=== PATIENT | female | born 1940 | race Native Hawaiian/Other Pacific Islander ===

== ENCOUNTER 2017-02-15 17:15 | Outpatient (CLI) | payer OTHER, MEDICARE ==
[~2017-02-15 17:15] MED LIST: AMIO200T14 PO; AMIODARONE200 MG PO; AMLODIPINE5 MG PO; ASA LO-DOSE81 MG PO; CLOPIDOGREL75 MG PO; DIOVAN HCT320 MG/25 PO; GLIM4TAB PO; LEVOTHYROXIN75 MCG PO; LIPITOR40 MG PO; MELOXICAM15 MG PO; METFTAB PO; METO25TA4 PO; METOPROLOL25 MG PO; PANT40TA PO; RANITIDINE 150150 MG PO
[2017-02-15 17:42] LABS: PLATELET COUNT 329 K/uL (152-353)
[2017-02-15 18:41] LABS: POTASSIUM 3.8 mmol/L (3.6-5.2); SODIUM 134 mmol/L (136-145)
== END 2017-02-15 19:21 | disposition home or self-care (01) ==
LOC: LABW 17:15
PROVIDERS: Nurse Practitioner
DX: D64.89 Other specified anemias (principal); I48.91 Unspecified atrial fibrillation; E11.9 Type 2 diabetes mellitus without complications; E78.4 Other hyperlipidemia; E03.8 Other specified hypothyroidism; R42 Dizziness and giddiness; R53.1 Weakness; Z79.01 Long term (current) use of anticoagulants; Z51.81 Encounter for therapeutic drug level monitoring
CPT/HCPCS: 36415; 80053; 80061; 82607; 82728; 83036; 83540; 84443; 85027; 85610

== ENCOUNTER 2017-04-05 12:40 | Outpatient (CLI) | payer OTHER, MEDICARE ==
[2017-04-05 13:09] LABS: PLATELET COUNT 187 K/uL (152-353)
== END 2017-04-05 19:32 | disposition home or self-care (01) ==
LOC: LABW 12:40
PROVIDERS: Nurse Practitioner
DX: D64.9 Anemia, unspecified (principal)
CPT/HCPCS: 36415; 82607; 82728; 83540; 83550; 85027

== ENCOUNTER 2018-10-30 09:54 | Outpatient (CLI) | payer OTHER, MEDICARE ==
[2018-10-30 10:33] LABS: PLATELET COUNT 217 K/uL (152-353)
[2018-10-30 10:49] LABS: POTASSIUM 3.8 mmol/L (3.6-5.2)
== END 2018-10-30 22:10 | disposition home or self-care (01) ==
LOC: LABW 09:54
PROVIDERS: Nurse Practitioner
DX: I10 Essential (primary) hypertension (principal); E11.21 Type 2 diabetes mellitus with diabetic nephropathy; E78.00 Pure hypercholesterolemia, unspecified; E03.9 Hypothyroidism, unspecified
CPT/HCPCS: 36415; 80053; 80061; 82043; 82570; 83036; 84443; 85027

== ENCOUNTER 2018-11-16 09:43 | Outpatient (CLI) | payer OTHER, MEDICARE | END 2018-11-16 20:49 | disposition home or self-care (01) | LOC: MAMMO 09:43 | DX: Z12.31 Encounter for screening mammogram for malignant neoplasm of breast (principal) ==

== ENCOUNTER 2019-04-18 12:59 | Outpatient (CLI) | payer OTHER, MEDICARE | END 2019-04-18 19:21 | disposition home or self-care (01) | LOC: RAD 12:59 | DX: M79.604 Pain in right leg (principal) ==

== ENCOUNTER 2019-05-22 11:39 | Outpatient (CLI) | payer OTHER, MEDICARE | END 2019-05-22 19:23 | disposition home or self-care (01) | LOC: LAB 11:39 | DX: R10.31 Right lower quadrant pain (principal) | CPT/HCPCS: 81000; 87086; 87088 ==

== ENCOUNTER 2019-05-29 09:09 | Outpatient (CLI) | payer OTHER, MEDICARE | END 2019-05-29 22:33 | disposition home or self-care (01) | LOC: CT 09:09 | DX: R10.31 Right lower quadrant pain (principal) ==

== ENCOUNTER 2019-12-11 12:35 | Outpatient (CLI) | payer OTHER ==
[2019-12-11 13:23] LABS: PLATELET COUNT 210 K/uL (152-353)
[2019-12-11 15:51] LABS: POTASSIUM 3.9 mmol/L (3.6-5.2)
== END 2019-12-11 21:13 | disposition home or self-care (01) ==
LOC: LAB 12:35
PROVIDERS: Nurse Practitioner Family
DX: Z00.00 Encounter for general adult medical examination without abnormal findings (principal); E03.8 Other specified hypothyroidism; I48.91 Unspecified atrial fibrillation; I10 Essential (primary) hypertension; K21.9 Gastro-esophageal reflux disease without esophagitis; F41.9 Anxiety disorder, unspecified; I25.10 Atherosclerotic heart disease of native coronary artery without angina pectoris; E11.41 Type 2 diabetes mellitus with diabetic mononeuropathy; Z79.899 Other long term (current) drug therapy
CPT/HCPCS: 80053; 80061; 83036; 84439; 84443; 85027

== ENCOUNTER 2020-04-21 13:57 | Outpatient (CLI) | payer OTHER ==
[2020-04-21 15:04] LABS: POTASSIUM 4.2 mmol/L (3.6-5.2)
== END 2020-04-21 19:13 | disposition home or self-care (01) ==
LOC: LAB 13:57
PROVIDERS: Nurse Practitioner Family
DX: M25.50 Pain in unspecified joint (principal); F41.8 Other specified anxiety disorders; I10 Essential (primary) hypertension; E03.8 Other specified hypothyroidism; K21.9 Gastro-esophageal reflux disease without esophagitis; E11.41 Type 2 diabetes mellitus with diabetic mononeuropathy; I48.91 Unspecified atrial fibrillation; Z79.899 Other long term (current) drug therapy
CPT/HCPCS: 80053; 80061; 82306; 82607; 84439; 84443

== ENCOUNTER 2020-06-17 09:48 | Outpatient (CLI) | payer OTHER | END 2020-06-17 19:49 | disposition home or self-care (01) | LOC: US 09:48 | DX: M79.606 Pain in leg, unspecified (principal); R60.0 Localized edema ==

== ENCOUNTER 2020-08-24 13:02 | Outpatient (CLI) | payer OTHER | END 2020-08-24 23:46 | disposition home or self-care (01) | LOC: LAB 13:02 | DX: R50.9 Fever, unspecified (principal); J02.9 Acute pharyngitis, unspecified; Z11.59 Encounter for screening for other viral diseases | CPT/HCPCS: 87635; G2023; U0003 ==

== ENCOUNTER 2020-11-03 13:15 | Outpatient (CLI) | payer OTHER ==
[2020-11-03 13:53] LABS: PLATELET COUNT 157 K/uL (152-353)
[2020-11-03 14:06] LABS: POTASSIUM 4.6 mmol/L (3.6-5.2)
== END 2020-11-03 22:01 | disposition home or self-care (01) ==
LOC: LAB 13:15
PROVIDERS: ATTEND Nurse Practitioner Family
DX: I10 Essential (primary) hypertension (principal); F41.8 Other specified anxiety disorders; E03.8 Other specified hypothyroidism; I48.91 Unspecified atrial fibrillation; E11.41 Type 2 diabetes mellitus with diabetic mononeuropathy; K21.9 Gastro-esophageal reflux disease without esophagitis; R13.10 Dysphagia, unspecified; E55.9 Vitamin D deficiency, unspecified
CPT/HCPCS: 80053; 80061; 82306; 83036; 84439; 84443; 84481; 85027

== ENCOUNTER 2021-03-25 20:49 | Observation (INO) | payer OTHER ==
[2021-03-25] VITALS (7 sets, daily range): BP systolic 136–195; BP diastolic 52–67; TEMP 98.1
[~2021-03-25] VITALS: Ht 172.7 cm; Wt 74.2 kg
[2021-03-25 21:32] LABS: PLATELET COUNT 185 K/uL (152-353)
[2021-03-25 21:42] LABS: POTASSIUM 4.4 mmol/L (3.6-5.2); SODIUM 139 mmol/L (136-145)
[2021-03-25 21:59] LABS: PARTIAL THROMBOPLASTIN TIME 24.1 SECONDS (24.5-33.6)
[2021-03-26 04:00] VITALS: BP 145/56; TEMP 98.5
[2021-03-26 06:52] VITALS: BP 158/57; TEMP 97.6; Ht 172.7 cm; Wt 74.2 kg
[2021-03-26 08:00] VITALS: BP 150/60; TEMP 97.6
[2021-03-26 08:57] LABS: POTASSIUM 4.3 mmol/L (3.6-5.2)
[2021-03-26 08:59] LABS: PLATELET COUNT 160 K/uL (152-353)
[2021-03-26 12:00] VITALS: BP 166/59; TEMP 98
--- NOTE | 2021-03-26 13:28 | NUR ---
EKG COMPLETED AND PLACED ON PT CHART.
[2021-03-26 16:00] VITALS: BP 178/63; TEMP 98.3
--- NOTE | 2021-03-26 18:00 | NUR ---
20G TO LAC D/C WITH TIP INTACT. PT TOLERATED WELL. DISCHARGE INSTRUCTIONS PROVIDED TO PATIENT. PATIENT VERBALIZED UNDERSTANDING. [facility] CALLED TO [place] [facility] PATIENT. PATIENT WAITING ON TRANSPORTATION HOME.
--- NOTE | 2021-03-26 18:28 | NUR ---
[facility] HERE. PATIENT DISCHARGED HOME VIA WHEELCHAIR TO PERSONAL VEHICLE WITH [facility]ING.
== END 2021-03-26 18:30 | disposition home or self-care (01) ==
LOC: ED 20:49 → MED/SURG 22:46
PROVIDERS: Hospitalist; ADMIT Internal Medicine Endocrinology, Diabetes & Metabolism; ATTEND Internal Medicine Endocrinology, Diabetes & Metabolism
DX: R07.89 Other chest pain (principal); E78.49 Other hyperlipidemia; E11.9 Type 2 diabetes mellitus without complications; I25.10 Atherosclerotic heart disease of native coronary artery without angina pectoris; I10 Essential (primary) hypertension; I73.89 Other specified peripheral vascular diseases; R06.02 Shortness of breath; M15.8 Other polyosteoarthritis
CPT/HCPCS: 36415; 80048; 80053; 82550; 83880; 84484; 85027; 85610; 85730; 87635; 93005; 94760; 99220; 99283; G0378; J1650; U0003

== ENCOUNTER 2022-01-20 09:23 | Outpatient (CLI) | payer OTHER | END 2022-01-20 19:09 | disposition home or self-care (01) | LOC: CT 09:23 | PROVIDERS: ATTEND Nurse Practitioner Family | DX: R93.89 Abnormal findings on diagnostic imaging of other specified body structures (principal); R91.1 Solitary pulmonary nodule | CPT/HCPCS: Q9963 ==

== ENCOUNTER 2022-01-20 16:22 | Emergency (ER) | payer OTHER | END 2022-01-20 16:40 | disposition home or self-care (01) | LOC: ED 16:22 | DX: Z53.21 Procedure and treatment not carried out due to patient leaving prior to being seen by health care provider (principal) | CPT/HCPCS: 99281 ==

== ENCOUNTER 2022-01-29 05:28 | Emergency (ER) | payer OTHER ==
[~2022-01-29] VITALS: Ht 172.7 cm; Wt 63.0 kg
[2022-01-29 05:28] VITALS: TEMP 97.6
[2022-01-29 05:49] LABS: PLATELET COUNT 384 K/uL (152-353)
[2022-01-29 05:58] LABS: POTASSIUM 3.6 mmol/L (3.6-5.2)
[2022-01-29 06:12] LABS: PARTIAL THROMBOPLASTIN TIME 28.3 SECONDS (24.5-33.6)
[2022-01-29 09:05] VITALS: BP 119/77
== END 2022-01-29 09:06 | disposition short-term general hospital (02) ==
LOC: ED 05:28
PROVIDERS: Emergency Medicine
DX: I24.9 Acute ischemic heart disease, unspecified (principal); I48.20 Chronic atrial fibrillation, unspecified; Z11.52 Encounter for screening for COVID-19; I10 Essential (primary) hypertension
CPT/HCPCS: 36415; 80053; 82550; 84484; 85027; 85610; 85730; 87635; 93005; 96365; 96375; 99284; J2270; J2405; J3490; U0003

== ENCOUNTER 2022-02-20 11:43 | Inpatient (IN) | payer OTHER ==
[2022-02-20] VITALS (20 sets, daily range): BP systolic 120–174; BP diastolic 52–83; TEMP 97.6–98.2; Ht 172.7 cm; Wt 59.7 kg
[~2022-02-20] VITALS: Ht 172.7 cm; Wt 59.7 kg
[2022-02-20 12:17] LABS: PLATELET COUNT 299 K/uL (152-353)
[2022-02-20 12:20] LABS: POTASSIUM 3.6 mmol/L (3.6-5.2)
[2022-02-20 12:30] LABS: PARTIAL THROMBOPLASTIN TIME 32.3 SECONDS (24.5-33.6)
[2022-02-20] MEDS ORDERED: HYDR25TA57 PO (16:16)
[2022-02-20] MEDS ORDERED: CHLORTHALID25 MG PO (16:18)
[2022-02-20] MEDS ORDERED: LIPITOR40 MG PO (16:20)
[2022-02-20] MEDS ORDERED: LISI10TA11 PO (16:23)
[2022-02-20] MEDS ORDERED: SUCRALFATE1 GM PO (16:25)
[2022-02-20] MEDS ORDERED: GLIM4TAB PO (16:26)
[2022-02-20] MEDS ORDERED: AMIODARONE HYD200 MG PO (16:31)
[2022-02-20] MEDS ORDERED: APIX1TAB PO (16:32)
[2022-02-20] MEDS ORDERED: EUTHYROX125 MCG PO (16:35)
[2022-02-20] MEDS ORDERED: FAMOTIDINE20 MG PO (16:39)
[2022-02-20] MEDS ORDERED: MEGESTROL400 MG/10 PO (16:40)
[2022-02-20] MEDS ORDERED: VITAMIN D32000 UNI1 PO (16:42)
[2022-02-20] MEDS ORDERED: [UNRECOGNIZED DRUG - CODE] PO (16:43)
[2022-02-20] MEDS ORDERED: FURO20TA67 PO (16:44)
[2022-02-20 19:59] LABS: PLATELET COUNT 255 K/uL (152-353)
[2022-02-20 20:13] LABS: POTASSIUM 3.2 mmol/L (3.6-5.2)
== END 2022-02-20 21:54 | disposition short-term general hospital (02) | DRG 689 ==
LOC: ED 11:43 → MED/SURG 13:45
PROVIDERS: Hospitalist; ADMIT Internal Medicine; ATTEND Internal Medicine
DX: N39.0 Urinary tract infection, site not specified (principal); I46.9 Cardiac arrest, cause unspecified; E86.0 Dehydration; I25.10 Atherosclerotic heart disease of native coronary artery without angina pectoris; E03.8 Other specified hypothyroidism; E11.9 Type 2 diabetes mellitus without complications; I11.0 Hypertensive heart disease with heart failure; I50.9 Heart failure, unspecified; I48.0 Paroxysmal atrial fibrillation
CPT/HCPCS: 36415; 51702; 80053; 80320; 81000; 82550; 82948; 83880; 84484; 85027; 85610; 85730; 87077; 87086; 87088; 87186; 87635; 92950; 93005; 94760; 96360; 96365; 99284; J0171; J0282; J0696; J1650; J1815; J2405; U0003

== ENCOUNTER 2022-03-03 10:29 | Inpatient (IN) | payer OTHER ==
[~2022-03-03] VITALS: Ht 172.7 cm; Wt 61.9 kg
[~2022-03-03 10:29] MED LIST changes: +ALLERCLEAR10 MG PO; +AMIODARONE HYD200 MG PO; +APIX1TAB PO; +CHLORTHALID25 MG PO; +EUTHYROX125 MCG PO; +FAMOTIDINE20 MG PO; +FURO20TA67 PO; +HYDR25TA57 PO; +LISI10TA11 PO; +MEGE40TA32 PO; +SUCRALFATE1 GM PO; +VITAMIN D32000 UNI1 PO
[2022-03-03 13:28] VITALS: BP 151/62; TEMP 97.6; Ht 172.7 cm; Wt 61.9 kg
[2022-03-03] MEDS ORDERED: CARAFATE1 GM PO (14:25)
[2022-03-03] MEDS ORDERED: METF500T PO (14:25)
[2022-03-03] MEDS ORDERED: ASPIRIN/ENTERIC81 MG PO (14:27)
[2022-03-03] MEDS ORDERED: METO50TA63 PO (14:27)
[2022-03-03] MEDS ORDERED: GLIM4TAB PO (14:31)
[2022-03-03 20:00] VITALS: BP 144/55; TEMP 98.04
[2022-03-04 08:00] VITALS: BP 177/109; TEMP 98.4
[2022-03-04 20:00] VITALS: BP 143/55; TEMP 98.9
[2022-03-05 08:00] VITALS: BP 120/99; TEMP 98.8
[2022-03-05 20:00] VITALS: BP 164/61; TEMP 98.5
[2022-03-06 08:00] VITALS: BP 167/66; TEMP 98.6
[2022-03-06 20:00] VITALS: BP 154/60; TEMP 98.8
[2022-03-07 08:00] VITALS: BP 156/61; TEMP 98.1
[2022-03-07 17:15] VITALS: BP 158/59
[2022-03-07 20:00] VITALS: BP 141/57; TEMP 98.2
[2022-03-07 21:15] VITALS: BP 141/57; TEMP 98.2
[2022-03-08 08:00] VITALS: BP 169/63; TEMP 98.1
[2022-03-08 10:45] VITALS: BP 151/97; TEMP 98.1
[2022-03-08 13:15] VITALS: BP 132/59; TEMP 98.1
[2022-03-08 20:11] VITALS: BP 129/53; TEMP 98.8
[2022-03-08 21:15] VITALS: BP 129/53; TEMP 98.8
[2022-03-09 08:00] VITALS: BP 149/56; TEMP 98.8
[2022-03-09 09:00] VITALS: BP 149/56; TEMP 98.8
[2022-03-09 20:00] VITALS: BP 141/53; TEMP 98.9
[2022-03-10 08:00] VITALS: BP 148/72; TEMP 98.2
[2022-03-10 20:00] VITALS: BP 140/55; TEMP 98
[2022-03-11 08:00] VITALS: BP 171/70; TEMP 98.2
== END 2022-03-11 10:32 | disposition home health service (06) | DRG 298 ==
LOC: MED/SURG 10:29
PROVIDERS: ADMIT Internal Medicine Endocrinology, Diabetes & Metabolism; ATTEND Internal Medicine Endocrinology, Diabetes & Metabolism
DX: I46.9 Cardiac arrest, cause unspecified (principal); I48.20 Chronic atrial fibrillation, unspecified; E11.9 Type 2 diabetes mellitus without complications; E16.2 Hypoglycemia, unspecified; I25.10 Atherosclerotic heart disease of native coronary artery without angina pectoris; Z95.1 Presence of aortocoronary bypass graft; M62.81 Muscle weakness (generalized); R26.81 Unsteadiness on feet; Z74.1 Need for assistance with personal care; R13.12 Dysphagia, oropharyngeal phase; E78.5 Hyperlipidemia, unspecified; I10 Essential (primary) hypertension
CPT/HCPCS: 87081; J1815; J7060

== ENCOUNTER → 2022-05-03 | Emergency (ER) | payer OTHER ==
[~2022-05-03] VITALS: Ht 172.7 cm; Wt 61.7 kg
[~2022-05-03] MED LIST changes: +ASPIRIN/ENTERIC81 MG PO; +CARAFATE1 GM PO; +CEPH500C20 PO; +METF500T PO; +METO50TA63 PO
[2022-05-03 19:05] LABS: PLATELET COUNT 265 K/uL (152-353)
[2022-05-03 19:19] LABS: POTASSIUM 3.7 mmol/L (3.6-5.2)
[2022-05-03 21:55] VITALS: BP 155/72; TEMP 98.4
== END ==
LOC: ED 18:21
PROVIDERS: Emergency Medicine
PROC: 0HQ1XZZ Repair Face Skin, External Approach (ICD-10-PCS; principal; 2022-05-03)
DX: S01.81XA Laceration without foreign body of other part of head, initial encounter (principal); W18.12XA Fall from or off toilet with subsequent striking against object, initial encounter; Y92.89 Other specified places as the place of occurrence of the external cause
CPT/HCPCS: 36415; 80053; 84484; 85027; 93005; 96360; 99284

== ENCOUNTER 2022-06-06 08:20 | Emergency (ER) | payer OTHER ==
[~2022-06-06] VITALS: Ht 172.7 cm; Wt 64.0 kg
[2022-06-06 08:28] VITALS: TEMP 98
[2022-06-06 09:13] LABS: PLATELET COUNT 238 K/uL (152-353)
[2022-06-06 09:23] LABS: POTASSIUM 3.6 mmol/L (3.6-5.2)
[2022-06-06 14:43] VITALS: BP 164/74
== END 2022-06-06 14:44 | disposition short-term general hospital (02) ==
LOC: ED 08:20
PROVIDERS: Emergency Medicine Emergency Medical Services
DX: I50.9 Heart failure, unspecified (principal); Z95.0 Presence of cardiac pacemaker
CPT/HCPCS: 80053; 81002; 83735; 83880; 84484; 85027; 85610; 93005; 96374; 99284; J1940

== ENCOUNTER 2022-07-15 11:51 | Emergency (ER) | payer OTHER ==
[~2022-07-15] VITALS: Ht 172.7 cm; Wt 64.0 kg
[2022-07-15 12:06] VITALS: TEMP 97.4
[2022-07-15 12:54] LABS: PLATELET COUNT 350 K/uL (152-353)
[2022-07-15 12:59] LABS: POTASSIUM 3.5 mmol/L (3.6-5.2)
[2022-07-15 17:15] VITALS: BP 131/71
[2022-07-15] MEDS ORDERED: POTA20TA4 PO ×2 (17:24)
[2022-07-16] MEDS ORDERED: METF500T PO ×4 (12:27→12:28)
[2022-07-16] MEDS ORDERED: GLIM2TAB PO ×4 (12:30→12:31)
[2022-07-16] MEDS ORDERED: FERROUS SULF325 MG PO ×4 (12:33→13:28)
[2022-07-16] MEDS ORDERED: CLOPIDOGREL75 MG PO ×2 (12:35)
[2022-07-16] MEDS ORDERED: POTASSIUM CHLO20 ME1 PO ×2 (12:39)
== END 2022-07-15 18:27 | disposition home or self-care (01) ==
LOC: ED 11:51
PROVIDERS: Emergency Medicine
DX: I50.9 Heart failure, unspecified (principal); D64.89 Other specified anemias; E87.6 Hypokalemia; Z79.899 Other long term (current) drug therapy
CPT/HCPCS: 36415; 80053; 80307; 81002; 82140; 82550; 83880; 84443; 84484; 85027; 93005; 96374; 99284; J1940

== ENCOUNTER 2022-07-16 05:10 | Observation (INO) | payer OTHER ==
[~2022-07-16] VITALS: Ht 172.7 cm; Wt 60.8 kg
[2022-07-16] VITALS (10 sets, daily range): BP systolic 115–146; BP diastolic 57–102; TEMP 96.1–98.5; Ht 172.7 cm; Wt 60.8 kg
[~2022-07-16 05:10] MED LIST changes: +POTA20TA4 PO
[2022-07-16 05:55] LABS: PLATELET COUNT 317 K/uL (152-353)
[2022-07-16 06:08] LABS: POTASSIUM 3.4 mmol/L (3.6-5.2)
[2022-07-16] MEDS ORDERED: METF500T PO ×4 (12:27→12:28)
[2022-07-16] MEDS ORDERED: GLIM2TAB PO ×4 (12:30→12:31)
[2022-07-16] MEDS ORDERED: FERROUS SULF325 MG PO ×4 (12:33→13:28)
[2022-07-16] MEDS ORDERED: CLOPIDOGREL75 MG PO ×2 (12:35)
[2022-07-16] MEDS ORDERED: POTASSIUM CHLO20 ME1 PO ×2 (12:39)
== END 2022-07-16 16:29 | disposition home or self-care (01) ==
LOC: ED 05:10 → MED/SURG 06:30
PROVIDERS: Emergency Medicine; ADMIT Internal Medicine; ATTEND Internal Medicine
DX: E11.649 Type 2 diabetes mellitus with hypoglycemia without coma (principal); D50.8 Other iron deficiency anemias; Z86.73 Personal history of transient ischemic attack (TIA), and cerebral infarction without residual deficits; I11.0 Hypertensive heart disease with heart failure; I50.9 Heart failure, unspecified; I48.91 Unspecified atrial fibrillation; E78.49 Other hyperlipidemia; E03.8 Other specified hypothyroidism
CPT/HCPCS: 36415; 36430; 80053; 82607; 82728; 82746; 82948; 83540; 83550; 84466; 84484; 85027; 86850; 86900; 86901; 86922; 93005; 96374; 99220; 99284; G0378; J7060; P9016

== ENCOUNTER 2022-07-21 08:15 | Outpatient (CLI) | payer OTHER ==
[~2022-07-21] VITALS: Ht 172.7 cm; Wt 60.8 kg
[~2022-07-21 08:15] MED LIST changes: +FERROUS SULF325 MG PO; +GLIM2TAB PO; +POTASSIUM CHLO20 ME1 PO
[2022-07-21 08:19] VITALS: BP 138/54; TEMP 98.3
[2022-07-21 10:25] VITALS: BP 126/48; TEMP 98.4
== END 2022-07-21 23:00 | disposition home or self-care (01) ==
LOC: INF 08:15
PROVIDERS: ATTEND Internal Medicine
DX: D64.9 Anemia, unspecified (principal)
CPT/HCPCS: 96365; J2916

== ENCOUNTER 2022-07-22 07:51 | Outpatient (CLI) | payer OTHER ==
[~2022-07-22] VITALS: Ht 172.7 cm; Wt 60.8 kg
[2022-07-22 08:14] VITALS: BP 115/74; TEMP 97.8
[2022-07-22 11:30] VITALS: BP 118/76; TEMP 98.2
== END 2022-07-22 21:46 | disposition home or self-care (01) ==
LOC: INF 07:51
PROVIDERS: ATTEND Internal Medicine
DX: D64.9 Anemia, unspecified (principal)
CPT/HCPCS: 96365; 96366; J2916

== ENCOUNTER 2022-07-27 08:10 | Outpatient (CLI) | payer OTHER ==
[~2022-07-27] VITALS: Ht 172.7 cm; Wt 60.8 kg
[2022-07-27 10:37] VITALS: BP 128/56; TEMP 98.2
[2022-07-27 10:40] VITALS: BP 130/64; TEMP 97.6
[2022-07-27 10:58] VITALS: BP 126/49; TEMP 98.4
== END 2022-07-27 19:03 | disposition home or self-care (01) ==
LOC: INF 08:10
PROVIDERS: ATTEND Internal Medicine
DX: D64.9 Anemia, unspecified (principal)
CPT/HCPCS: 96365; J2916

== ENCOUNTER 2022-07-28 07:39 | Outpatient (CLI) | payer OTHER ==
[~2022-07-28] VITALS: Ht 172.7 cm; Wt 60.8 kg
== END 2022-07-28 20:54 | disposition home or self-care (01) ==
LOC: INF 07:39
PROVIDERS: ATTEND Internal Medicine
DX: D64.9 Anemia, unspecified (principal)
CPT/HCPCS: 96365; J2916

== ENCOUNTER 2022-07-29 07:51 | Outpatient (CLI) | payer OTHER ==
[~2022-07-29] VITALS: Ht 172.7 cm; Wt 60.8 kg
[2022-07-29 08:26] VITALS: BP 129/64; TEMP 98
[2022-07-29 10:15] VITALS: BP 121/62; TEMP 97.8
== END 2022-07-29 23:00 | disposition home or self-care (01) ==
LOC: INF 07:51
PROVIDERS: ATTEND Internal Medicine
DX: D64.9 Anemia, unspecified (principal)
CPT/HCPCS: 96365; J2916

== ENCOUNTER 2022-08-03 19:44 | Inpatient (IN) | payer OTHER ==
[~2022-08-03] VITALS: Ht 172.7 cm; Wt 69.0 kg
[~2022-08-03 19:44] MED LIST changes: +POT CHLORIDE10 MEQ PO; -POTASSIUM CHLO20 ME1 PO
[2022-08-03 20:01] VITALS: BP 137/78; TEMP 98.9
[2022-08-03 20:28] LABS: PLATELET COUNT 220 K/uL (152-353)
[2022-08-03 20:37] LABS: POTASSIUM 4.2 mmol/L (3.6-5.2)
[2022-08-04] VITALS (7 sets, daily range): BP systolic 106–132; BP diastolic 56–72; TEMP 96.8–98; Ht 172.7 cm; Wt 69.0 kg
[2022-08-04 05:24] LABS: PLATELET COUNT 209 K/uL (152-353)
[2022-08-04 05:29] LABS: POTASSIUM 4.2 mmol/L (3.6-5.2)
[2022-08-04] MEDS ORDERED: CARAFATE1 GM PO (08:51)
[2022-08-04] MEDS ORDERED: FAMO20TA4 PO (08:53)
[2022-08-04] MEDS ORDERED: VITAMIN D5000 UNIT PO (08:55)
[2022-08-04] MEDS ORDERED: FERROUS SULF325 MG PO (08:56)
[2022-08-04] MEDS ORDERED: LEVO-T150 MCG PO (08:58)
[2022-08-04] MEDS ORDERED: GLIM2TAB PO ×2 (08:59→09:00)
[2022-08-04] MEDS ORDERED: MEGESTROL PO (09:19)
[2022-08-05] VITALS: BP 109/61; TEMP 97.6
[2022-08-05 08:00] VITALS: BP 121/73; TEMP 98
[2022-08-05 12:00] VITALS: BP 116/68; TEMP 98.4
[2022-08-05 16:00] VITALS: BP 126/78; TEMP 98
[2022-08-05 20:00] VITALS: BP 94/52; TEMP 97.9
[2022-08-06] VITALS: BP 102/50; TEMP 97.8
[2022-08-06 04:00] VITALS: BP 108/59; TEMP 98.1
[2022-08-06 08:00] VITALS: BP 124/68; TEMP 97.36
[2022-08-06 12:00] VITALS: BP 122/63; TEMP 97.7
[2022-08-06 16:01] VITALS: BP 126/65; TEMP 97.7
[2022-08-06 20:00] VITALS: BP 123/81; TEMP 97.9
[2022-08-07] VITALS: BP 117/71; TEMP 97.4
[2022-08-07 04:00] VITALS: BP 134/71; TEMP 99.1
[2022-08-07 06:59] LABS: PLATELET COUNT 194 K/uL (152-353)
[2022-08-07 07:02] LABS: POTASSIUM 4.9 mmol/L (3.6-5.2)
[2022-08-07 08:00] VITALS: BP 145/82; TEMP 97.8
[2022-08-07 12:00] VITALS: BP 125/79; TEMP 97.6
[2022-08-07 15:28] VITALS: BP 139/83; TEMP 98.1
[2022-08-07 20:00] VITALS: BP 117/77; TEMP 94.2
[2022-08-08] VITALS (7 sets, daily range): BP systolic 113–152; BP diastolic 64–76; TEMP 95.2–98.3
[2022-08-09 04:00] VITALS: BP 142/73; TEMP 97.5
[2022-08-09 08:00] VITALS: BP 129/66; TEMP 97.8
[2022-08-09 12:00] VITALS: BP 143/70; TEMP 97.4
[2022-08-09 16:00] VITALS: BP 119/62; TEMP 97.5
== END 2022-08-09 17:51 | DRG 193 ==
LOC: ED 19:44 → MED/SURG 22:30 → UNDODEPER 08-04 23:00 → MED/SURG 08-09 17:51
PROVIDERS: ADMIT Emergency Medicine Emergency Medical Services; ATTEND Internal Medicine
DX: J18.8 Other pneumonia, unspecified organism (principal); G92.8 Other toxic encephalopathy; N39.0 Urinary tract infection, site not specified; B96.89 Other specified bacterial agents as the cause of diseases classified elsewhere; R41.82 Altered mental status, unspecified; I48.0 Paroxysmal atrial fibrillation; E03.8 Other specified hypothyroidism; I25.10 Atherosclerotic heart disease of native coronary artery without angina pectoris; E78.49 Other hyperlipidemia; Z86.73 Personal history of transient ischemic attack (TIA), and cerebral infarction without residual deficits; E11.65 Type 2 diabetes mellitus with hyperglycemia; I11.0 Hypertensive heart disease with heart failure; I50.9 Heart failure, unspecified
CPT/HCPCS: 36415; 51702; 80048; 80053; 81000; 82272; 83735; 84484; 85027; 87040; 87077; 87086; 87088; 87186; 87635; 93005; 96360; 96374; 99284; J1956; J0456; J0696; J1815; J2405; J3490; U0003